=== PATIENT | female | born 1985 | race Caucasian/White ===

== ENCOUNTER 2016-12-13 14:29 | Emergency (ER) | payer OTHER ==
[~2016-12-13] VITALS: Ht 162.6 cm; Wt 53.2 kg
[2016-12-13 14:33] VITALS: BP 135/93; PULSE 73; RESP 16; TEMP 98.3; O2SAT 100
[2016-12-13] MEDS ORDERED: SODIUM CHLOR 0.9% 1000 ML INJ 1,000 ML IV ONE (14:50)
[2016-12-13] MEDS ORDERED: COBA1000 IM (14:52)
[2016-12-13] MEDS ORDERED: ADDE10XR PO (14:52)
[2016-12-13] MEDS ORDERED: METH5TAB7 PO (14:52)
[2016-12-13] MEDS ORDERED: POTA8CAP PO (14:52)
--- NOTE | 2016-12-13 14:54 | PD ---
HPI Chief Complaint: Flank/Kidney Pain Time Seen by Provider: 14:50 Travel History International Travel<30 days: No Contact w/Intl Traveler<30days: No Traveled to known affect area: No History of Present Illness HPI Patient presents with complaints of right flank pain since this morning. Constant but varies in intensity. Denies any urinary symptoms. Denies any hematuria. Admits to mild nausea no vomiting. No history of kidney stones. Denies . Taking fluids well. PFSH Past Medical History ADHD: Yes Cerebrovascular Accident: Yes (TIA) Tetanus Vaccination: > 5 Years Influenza Vaccination: No ?: Not Past Surgical History Appendectomy: Yes Section: Yes Other Surgery: Yes (BREAST AUG) Social History Alcohol Use: Yes (SOCIAL) Tobacco Use: No Substance Use: No Allergies-Medications (Allergen,Severity, Reaction): Coded Allergies: Betadine (Verified Allergy, Severe, 12/13/16) Reported Meds & Prescriptions Reported Meds & Active Scripts Active Reported Potassium Chloride ER (Potassium Chloride) 8 Meq Cap Unknown Dose PO DAILY B-12 1000 (Cobalamine Combinations) 1,000-400 Mcg Subl 1,000 Mcg IM MONTHLY Methylphenidate IR (Methylphenidate HCl) 5 Mg Tab 5 Mg PO HS Adderall Xr 24 HR (Amphetamine/Dextroamphetamine) 10 Mg Cap 10 Mg PO DAILY Once daily in the morning. Review of Systems General / Constitutional: No: Fever Eyes: No: Visual changes HENT: No: Headaches Cardiovascular: No: Chest Pain or Discomfort Respiratory: No: Shortness of Breath Gastrointestinal: Positive: Nausea, No: Abdominal Pain Genitourinary: Positive: Flank Pain, No: Dysuria Musculoskeletal: No: Pain Skin: No Rash Neurologic: No: Weakness Psychiatric: No: Depression Endocrine: No: Polydipsia Hematologic/Lymphatic: No: Easy Bruising Physical Exam Narrative GENERAL: Well-nourished, well-developed patient. SKIN: Focused skin assessment warm/dry. HEAD: Normocephalic. EYES: No scleral icterus. No injection or drainage. NECK: Supple, trachea midline. No JVD or lymphadenopathy. CARDIOVASCULAR: Regular rate and rhythm without murmurs, gallops, or rubs. RESPIRATORY: Breath sounds equal bilaterally. No accessory muscle use. GASTROINTESTINAL: Abdomen soft, non-tender, nondistended. Pain is localized to the right flank MUSCULOSKELETAL: No cyanosis, or edema. BACK: Nontender without obvious deformity. No CVA tenderness. Data Data Last Documented VS Vital Signs Date Time Temp Pulse Resp B/P Pulse Ox O2 Delivery O2 Flow Rate FiO2 12/13/16 14:33 98.3 73 16 135/93 100 Orders Urinalysis - C+S If Indicated (12/13/16 14:46) Ed Urine Pregnancytest Poc (12/13/16 14:46) Ct Abd/Pel W/O Iv Contrast (12/13/16 14:50) Ecg Monitoring (12/13/16 14:50) Iv Access Insert/Monitor (12/13/16 14:50) Ketorolac Inj (Toradol Inj) (12/13/16 15:00) Morphine Inj (Morphine Inj) (12/13/16 15:00) Sodium Chloride 0.9% Flush (Ns Flush) (12/13/16 15:00) Sodium Chlor 0.9% 1000 Ml Inj (Ns 1000 M (12/13/16 14:50) Labs Laboratory Tests Test 12/13/16 14:50 Urine Collection Type CLEAN CATCH Urine Color YELLOW Urine Turbidity CLEAR Urine pH 5.5 Urine Specific [place] 1.018 Urine Protein NEG mg/dL Urine Glucose (UA) NEG mg/dL Urine Ketones NEG mg/dL Urine Occult Blood NEG Urine Nitrite NEG Urine Bilirubin NEG Urine Leukocyte Esterase NEG Urine WBC 0-2 /hpf Urine Squamous Epithelial 0-5 /hpf Cells Microscopic Urinalysis Comment CULT NOT INDICATED Urine Collection Time 14:50 [facility] Medical Decision Making Medical Screen Exam Complete: Yes Emergency Medical Condition: Yes Differential Diagnosis Cholelithiasis, UTI, cholecystitis, nephrolithiasis Narrative Course Assessment and plan discussed with patient and at bedside. Physician Communication Physician Communication Case discussed and care transferred to Earl Wagner MD Dec 13, 2016 14:54
[2016-12-13 14:58] LABS: BLOOD, URINE NEG (NEG); GLUCOSE,URINE NEG (NEG); KETONE, URINE NEG (NEG); NITRITE,URINE NEG (NEG); PH, URINE 5.5 (5.0-8.5)
[2016-12-13] MEDS ORDERED: KETOROLAC TROMETHAMINE 30 MG/ML (IVP) VIAL IVP ONE (15:00)
[2016-12-13] MEDS ORDERED: MORPHINE SULFATE 4 MG/ML INJ IV ONE (15:00)
[2016-12-13] MEDS ORDERED: SODIUM CHLORIDE 0.9% FLUSH 10 ML FLUSH IVF PRN (15:00)
[2016-12-13 15:03] LABS: METHOD OF COLLECTION CLEAN CATCH; URINE COLOR YELLOW (YELLW/STRAW)
[2016-12-13 15:04] LABS: COMMENT (UR) CULT NOT INDICATED; CULTURE IF INDICATED CULT NOT INDICATED; SQUAMOUS EPITHELIAL CELL URINE 0-5 /hpf (0-5); WBC, URINE 0-2 /hpf (0-5)
--- NOTE | 2016-12-13 16:10 | RADHPO ---
EXAM DATE/TIME: 12/13/2016 15:31 [place] COMPARISON: No previous studies available for comparison. INDICATIONS : Right flank pain. ORAL CONTRAST: No oral contrast ingested. RADIATION DOSE: 5.69 CTDIvol (mGy) MEDICAL HISTORY : Cerebrovascular disease. SURGICAL HISTORY : Appendectomy. ENCOUNTER: Initial ACUITY: 1 day PAIN SCALE: 4/10 LOCATION: Right flank TECHNIQUE: Volumetric scanning of the abdomen and pelvis was performed. Using automated exposure control and ad justment of the mA and/or kV according to patient size, radiation dose was kept as low as reasonably achievable to obtain optimal diagnostic quality images. FINDINGS: LOWER LUNGS: The visualized lower lungs are clear. LIVER: Homogeneous density without lesion. There is no dilation of the biliary tree. No calcified gallston es. SPLEEN: Normal size without lesion. PANCREAS: Within normal limits. KIDNEYS: Normal in size and shape. There is no mass, stone, or hydronephrosis. ADRENAL GLANDS: Within normal limits. VASCULAR: There is no aortic aneurysm. BOWEL/MESENTERY: The stomach, small bowel, and colon demonstrate no acute abnormality. There is no free intraperitone al air or fluid. ABDOMINAL WALL: Within normal limits. RETROPERITONEUM: There is no lymphadenopathy. BLADDER: No wall thickening or mass. REPRODUCTIVE: Within normal limits. Questionable pessary type device in the cervical region. INGUINAL: There is no lymphadenopathy or hernia. MUSCULOSKELETAL: Within normal limits for patient age. CONCLUSION: 1. No acute findings identified within the abdomen and pelvis. Specifically no evidence for obstructi ve uropathy or renal calculi. Ankur Cristina MD on December 13, 2016 at 16:05 Board Certified Radiologist. This report was verified electronically.
[2016-12-13 16:15] VITALS: BP 106/73; PULSE 72; RESP 18; O2SAT 99
[2016-12-13] MEDS ORDERED: HYDR-3533 PO (16:27)
--- NOTE | 2016-12-13 16:27 | PD ---
Physical Exam Date Seen by Provider: Dec 13, 2016 Time Seen by Provider: 16:23 Narrative This 31-year-old female came in because she is having right flank pain throughout the day. He was quite severe at times. It was bearing somewhat in intensity. There was no vomiting or diarrhea. There is been no dysuria. She has not had pain like this for. There was no unusual activity yesterday. Was no unusual food she has been seen initially by Dr. Davis who ordered urinalysis and CT scan. Urine is negative for blood or infection and CT scan has also been read as negative. Patient has received 4 mg of morphine 30 mg of Toradol and reports that her pain. There is no CVA tenderness. Her abdomen is soft nontender. Etiology for the pain has not been determined. She appears quite comfortable at this time. Data Data Last Documented VS Vital Signs Date Time Temp Pulse Resp B/P Pulse Ox O2 Delivery O2 Flow Rate FiO2 12/13/16 16:15 72 18 106/73 99 Room Air 12/13/16 14:33 98.3 Orders Urinalysis - C+S If Indicated (12/13/16 14:46) Ed Urine Pregnancytest Poc (12/13/16 14:46) Ct Abd/Pel W/O Iv Contrast (12/13/16 14:50) Ecg Monitoring (12/13/16 14:50) Iv Access Insert/Monitor (12/13/16 14:50) Ketorolac Inj (Toradol Inj) (12/13/16 15:00) Morphine Inj (Morphine Inj) (12/13/16 15:00) Sodium Chloride 0.9% Flush (Ns Flush) (12/13/16 15:00) Sodium Chlor 0.9% 1000 Ml Inj (Ns 1000 M (12/13/16 14:50) Labs Laboratory Tests Test 12/13/16 14:50 Urine Collection Type CLEAN CATCH Urine Color YELLOW Urine Turbidity CLEAR Urine pH 5.5 Urine Specific [place] 1.018 Urine Protein NEG mg/dL Urine Glucose (UA) NEG mg/dL Urine Ketones NEG mg/dL Urine Occult Blood NEG Urine Nitrite NEG Urine Bilirubin NEG Urine Leukocyte Esterase NEG Urine WBC 0-2 /hpf Urine Squamous Epithelial 0-5 /hpf Cells Microscopic Urinalysis Comment CULT NOT INDICATED Urine Collection Time 14:50 [facility] Medical Record Reviewed: No Supervised Visit with CHELLY: No Differential Diagnosis Differential includes musculoskeletal pain, pyelonephritis, renal colic, nonspecific abdominal pain Narrative Course CT is negative. Urinalysis is negative. Patient appears comfortable at this time. I will prescribe her Lortab in case the pain comes back but I cautioned her that we have not determined the etiology. If she should develop fever, increasing pain, vomiting she should be reevaluated Diagnosis Primary Impression: Nonspecific abdominal pain Scripts Hydrocodone-Acetaminophen (Lortab)5-325 Mg Tab1 Tab PO Q4H PRN (PAIN) #15 TAB Ref 0 Prov:Sedrick Cerna MD 12/13/16 Disposition: 01 DISCHARGE HOME Condition: Stable Sedrick Cerna MD Dec 13, 2016 16:27
== END 2016-12-13 16:37 | disposition home or self-care (01) ==
LOC: PHED 14:29
DX: R10.9 Unspecified abdominal pain (principal); Z86.73 Personal history of transient ischemic attack (TIA), and cerebral infarction without residual deficits; R11.0 Nausea
CPT/HCPCS: 74176; 81001; 84703; 96361; 96374; 96375; 99284; J1885; J2270; J7030